=== PATIENT | male | born 1995 | race Caucasian/White ===

== ENCOUNTER 2021-12-23 17:00 | Outpatient (CLI) | payer BC | END 2021-12-23 17:01 | disposition home or self-care (01) | LOC: SLEEPLAB 17:00 | PROVIDERS: ATTEND Nurse Practitioner Psychiatric/Mental Health | DX: G47.9 Sleep disorder, unspecified (principal); G47.33 Obstructive sleep apnea (adult) (pediatric); R09.89 Other specified symptoms and signs involving the circulatory and respiratory systems; R53.83 Other fatigue; F41.9 Anxiety disorder, unspecified; F32.9 Major depressive disorder, single episode, unspecified; G47.00 Insomnia, unspecified; M06.9 Rheumatoid arthritis, unspecified; M79.7 Fibromyalgia | CPT/HCPCS: 95800 ==

== ENCOUNTER 2022-02-10 14:42 | Outpatient (CLI) | payer BC | END 2022-02-10 14:43 | disposition home or self-care (01) | LOC: CTENTCT 14:42 | PROVIDERS: ATTEND Otolaryngology Plastic Surgery within the Head & Neck | DX: J32.9 Chronic sinusitis, unspecified (principal) | CPT/HCPCS: 70486 ==